=== PATIENT | male | born 1975 | race Hispanic/Latino ===

== ENCOUNTER 2023-07-13 17:14 | Emergency (ER) | payer BC ==
[~2023-07-13] VITALS: Ht 170.2 cm; Wt 63.5 kg
[2023-07-13] MEDS ORDERED: EPINEPHRINE 1MG/10ML(1:10,000) 0.1 MG/ML SYG ONE (17:29)
[2023-07-13] MEDS ORDERED: EPINEPHRINE PF 1MG (1:1,000) 1 MG/ML AMP ONE (17:31)
[2023-07-13] MEDS ORDERED: DiphenhydrAMINE HCL 50 MG/ML VIAL ONE (17:33)
[2023-07-13] MEDS ORDERED: FAMOTIDINE 20MG VIAL IV ONE ×2 (17:33→18:00)
[2023-07-13] MEDS ORDERED: SOLU-MEDROL 125MG VIAL ONE (17:33)
[2023-07-13 17:54] LABS: MEAN CORPUSCULAR HEMOGLOBIN 30.2 pg (27.0-33.0); MEAN CORPUSCULAR HGB CONC 36.1 g/dL (32.0-36.0); MEAN CORPUSCULAR VOLUME 83.7 fL (79-99); PLATELET COUNT (AUTO) 159 K/uL (130-400); RED BLOOD CELL COUNT(AUTO) 5.26 MIL/uL (4.50-6.20); RED CELL DISTRIBUTION WIDTH 11.9 % (11.0-15.5); WHITE BLOOD COUNT (AUTO) 7.6 K/uL (4.8-10.8)
[2023-07-13] MEDS ORDERED: SOLU-MEDROL 125MG VIAL IVP ONE (18:00)
[2023-07-13] MEDS ORDERED: DiphenhydrAMINE HCL 50 MG/ML VIAL IVP ONE (18:00)
[2023-07-13] MEDS ORDERED: EPINEPHRINE PF 1MG (1:1,000) 1 MG/ML AMP IM ONE ×2 (18:00→19:30)
[2023-07-13 18:07] LABS: CREATININE 1.1 mg/dL (0.5-1.5); POTASSIUM 3.6 mmol/L (3.5-5.1)
[2023-07-13] MEDS ORDERED: LACTATED RINGERS 1000ML IV ONE (18:30)
[2023-07-13] MEDS ORDERED: INSULIN HUMULIN R 100 UNIT/ML 3ML IV ONE (18:30)
[2023-07-13] MEDS ORDERED: PRED20TA3 PO (21:26)
[2023-07-13] MEDS ORDERED: DIPH50 PO (21:26)
[2023-07-13] MEDS ORDERED: EPIN0.3P2 IM (21:26)
[2023-07-13] MEDS ORDERED: FAMO-136 PO (21:27)
[2023-07-13 22:44] VITALS: BP 142/82; PULSE 99; RESP 16; O2SAT 100
== END 2023-07-13 22:46 | disposition home or self-care (01) ==
LOC: EDH 17:14
DX: T63.441A Toxic effect of venom of bees, accidental (unintentional), initial encounter (principal); T78.3XXA Angioneurotic edema, initial encounter; E11.65 Type 2 diabetes mellitus with hyperglycemia; Y92.89 Other specified places as the place of occurrence of the external cause
CPT/HCPCS: 99284; 96374; 96375; 80048; 85027; 36415; 93005; 96372 ×2; J1815; J1200; J3490; J2930; J0171 ×2

== ENCOUNTER 2023-12-25 12:05 | Emergency (ER) | payer BC, OTHER ==
[~2023-12-25] VITALS: Ht 170.2 cm; Wt 70.3 kg
[~2023-12-25 12:05] MED LIST: DIPH50 PO; EPIN0.3P2 IM; FAMO-136 PO; PRED20TA3 PO
[2023-12-25] MEDS ORDERED: DEXAMETHASONE SOD PHOSPHATE 4 MG/ML 1ML VIAL IVP ONE (12:30)
[2023-12-25] MEDS ORDERED: 0.9%NACL 1000ML 1,000 ML IV ONE (12:30)
[2023-12-25 14:01] VITALS: BP 123/77; PULSE 92; RESP 17; O2SAT 99
[2023-12-25] MEDS ORDERED: FAMO-136 PO (14:03)
[2023-12-25] MEDS ORDERED: DIPH-1242 PO (14:03)
[2023-12-25] MEDS: SOLU-MEDROL 125MG VIAL IVP ONE (14:04)
[2023-12-25] MEDS: FAMOTIDINE 20MG VIAL IV ONE (14:07)
[2023-12-25] MEDS: DiphenhydrAMINE HCL 50 MG/ML VIAL IV ONE (14:07)
[2023-12-25] MEDS: 0.9%NACL 1000ML 1,000 ML IV ONE (14:07)
== END 2023-12-25 14:15 | disposition home or self-care (01) ==
LOC: EDH 12:05
DX: T63.441A Toxic effect of venom of bees, accidental (unintentional), initial encounter (principal); T78.49XA Other allergy, initial encounter; E11.9 Type 2 diabetes mellitus without complications; Z79.899 Other long term (current) drug therapy; Y92.89 Other specified places as the place of occurrence of the external cause
CPT/HCPCS: 99284; 96374; 96375; 96361; J1200; J3490; J7030; J2919

== ENCOUNTER 2024-02-29 16:29 | Emergency (ER) | payer OTHER ==
[~2024-02-29] VITALS: Ht 170.2 cm; Wt 70.3 kg
[~2024-02-29 16:29] MED LIST changes: +DIPH-1242 PO
[2024-02-29 18:12] LABS: APPEARANCE,URINE CLEAR (CLEAR); BILIRUBIN,URINE NEGATIVE (NEGATIVE); COLOR,URINE LIGHT-YELLOW (YELLOW); GLUCOSE, URINE (UA) >=1000 mg/dL (NEGATIVE); KETONES,URINE 20 mg/dL (NEGATIVE); LEUKOCYTE ESTERASE ,URINE NEGATIVE Leu/uL (NEGATIVE); NITRATE,URINE NEGATIVE (NEGATIVE); OCCULT BLOOD,URINE NEGATIVE (NEGATIVE); PH,URINE 5.5 (5.0-8.0); PROTEIN,URINE 30 mg/dL (NEGATIVE); UROBILINOGEN,URINE 0.2 mg/dL (0.2-1.0)
[2024-02-29 18:14] LABS: ADD UA MICROSCOPIC YES
[2024-02-29 18:15] LABS: SARS-CoV-2, RNA, NAAT NEGATIVE SARS CoV-2 (NEGATIVE)
[2024-02-29 18:17] LABS: MUCUS,URINE RARE LPF (None Seen)
[2024-02-29 18:20] LABS: INFLUENZA TYPE A Negative For Type A (NEGATIVE); INFLUENZA TYPE B Negative For Type B (NEGATIVE)
[2024-02-29 18:21] LABS: BASOPHILS # (AUTO) 0.02 K/uL (0.00-0.20); BASOPHILS % (AUTO) 0.2 % (0.0-5.0); EOSINOPHILS # (AUTO) 0.03 K/uL (0.00-0.70); EOSINOPHILS % (AUTO) 0.3 % (0.0-8.0); HEMATOCRIT 47.1 % (42-54); IMMATURE GRANULOCYTE ABSOLUTE 0.04 K/uL (0-1); LYMPHOCYTES # (AUTO) 1.2 K/uL (1.0-4.8); LYMPHOCYTES % (AUTO) 11.9 % (21.0-51.0); MEAN CORPUSCULAR HEMOGLOBIN 29.8 pg (27.0-33.0); MEAN CORPUSCULAR HGB CONC 35.2 g/dL (32.0-36.0); MEAN CORPUSCULAR VOLUME 84.6 fL (79-99); MONOCYTES # (AUTO) 0.5 K/uL (0.1-1.0); MONOCYTES % (AUTO) 4.5 % (3.0-13.0); NEUTROPHILS # (AUTO) 8.5 K/uL (1.8-7.7); NEUTROPHILS % (AUTO) 82.7 % (40.0-77.0); PLATELET COUNT (AUTO) 174 K/uL (130-400); RED BLOOD CELL COUNT(AUTO) 5.57 MIL/uL (4.50-6.20); RED CELL DISTRIBUTION WIDTH 11.7 % (11.0-15.5); WHITE BLOOD COUNT (AUTO) 10.2 K/uL (4.8-10.8)
[2024-02-29] MEDS: FAMOTIDINE 20MG VIAL IV ONE (18:31)
[2024-02-29] MEDS: ondanSETRON 4MG INJ IVP ONE (18:31)
[2024-02-29 18:32] LABS: CREATININE 0.9 mg/dL (0.5-1.3); POTASSIUM 4.2 mmol/L (3.5-5.1)
[2024-02-29] MEDS: morPHINE 2 MG SYG IVP ONE (18:32)
[2024-02-29 18:37] LABS: ALBUMIN 3.7 g/dL (3.5-5.0); BILIRUBIN,TOTAL 0.8 mg/dL (0.2-1.0); TOTAL PROTEIN, SERUM 7.1 g/dL (6.0-8.3)
[2024-02-29] MEDS: 0.9%NACL 1000ML 1,000 ML IV ONE (20:20)
[2024-02-29 20:23] VITALS: BP 143/86; PULSE 78; RESP 18; TEMP 98.4; O2SAT 100
[2024-02-29] MEDS ORDERED: ONDA-243 PO (20:35)
[2024-02-29] MEDS: INSULIN humuLIN R 100 UNIT/ML 3ML IV ONE (20:48)
== END 2024-02-29 21:07 | disposition home or self-care (01) ==
LOC: EDH 16:29
DX: K52.9 Noninfective gastroenteritis and colitis, unspecified (principal); E11.65 Type 2 diabetes mellitus with hyperglycemia; Z79.899 Other long term (current) drug therapy; Z90.49 Acquired absence of other specified parts of digestive tract; Z98.890 Other specified postprocedural states; Z20.822 Contact with and (suspected) exposure to COVID-19
CPT/HCPCS: 99285; 70450; 96374; 96375; 87635; 80053; 83690; 85025; 87804 ×2; 82948; 81001; 36415; 74176; J3490; J2270; J7030; J2405

== ENCOUNTER 2024-03-01 08:22 | Emergency (ER) | payer OTHER ==
[~2024-03-01] VITALS: Ht 170.2 cm; Wt 70.3 kg
[~2024-03-01 08:22] MED LIST changes: +ONDA-243 PO
[2024-03-01 09:09] LABS: BASOPHILS # (AUTO) 0.04 K/uL (0.00-0.20); BASOPHILS % (AUTO) 0.5 % (0.0-5.0); EOSINOPHILS # (AUTO) 0.09 K/uL (0.00-0.70); EOSINOPHILS % (AUTO) 1.1 % (0.0-8.0); HEMATOCRIT 45.6 % (42-54); IMMATURE GRANULOCYTE ABSOLUTE 0.01 K/uL (0-1); LYMPHOCYTES # (AUTO) 2.1 K/uL (1.0-4.8); LYMPHOCYTES % (AUTO) 25.7 % (21.0-51.0); MEAN CORPUSCULAR HGB CONC 35.5 g/dL (32.0-36.0); MEAN CORPUSCULAR VOLUME 84.4 fL (79-99); MONOCYTES # (AUTO) 0.6 K/uL (0.1-1.0); MONOCYTES % (AUTO) 6.8 % (3.0-13.0); NEUTROPHILS # (AUTO) 5.3 K/uL (1.8-7.7); NEUTROPHILS % (AUTO) 65.8 % (40.0-77.0); PLATELET COUNT (AUTO) 176 K/uL (130-400); RED CELL DISTRIBUTION WIDTH 11.9 % (11.0-15.5); WHITE BLOOD COUNT (AUTO) 8.1 K/uL (4.8-10.8)
[2024-03-01 09:20] LABS: CREATININE 0.9 mg/dL (0.5-1.3); POTASSIUM 3.4 mmol/L (3.5-5.1)
[2024-03-01 09:24] LABS: ALBUMIN 3.6 g/dL (3.5-5.0); BILIRUBIN,TOTAL 0.9 mg/dL (0.2-1.0)
[2024-03-01 09:27] LABS: APPEARANCE,URINE CLEAR (CLEAR); BILIRUBIN,URINE NEGATIVE (NEGATIVE); COLOR,URINE LIGHT-YELLOW (YELLOW); GLUCOSE, URINE (UA) >=1000 mg/dL (NEGATIVE); KETONES,URINE 10 mg/dL (NEGATIVE); LEUKOCYTE ESTERASE ,URINE NEGATIVE Leu/uL (NEGATIVE); NITRATE,URINE NEGATIVE (NEGATIVE); OCCULT BLOOD,URINE NEGATIVE (NEGATIVE); PH,URINE 6.5 (5.0-8.0); PROTEIN,URINE NEGATIVE (NEGATIVE); UROBILINOGEN,URINE 0.2 mg/dL (0.2-1.0)
[2024-03-01 09:28] LABS: ADD UA MICROSCOPIC YES
[2024-03-01 09:29] LABS: WBC,URINE 0-1 /HPF (0-1)
[2024-03-01] MEDS: ketOROlac 15MG/ML VIAL (15MG/ML) IV ONE (09:55)
[2024-03-01] MEDS: ondanSETRON 4MG INJ IVP ONE (09:55)
[2024-03-01] MEDS: FAMOTIDINE 20MG VIAL IV ONE (09:55)
[2024-03-01] MEDS: 0.9%NACL 1000ML 1,000 ML IV ONE (09:56)
[2024-03-01 15:17] VITALS: BP 144/80; PULSE 77; RESP 14; TEMP 97.5; O2SAT 99
== END 2024-03-01 15:18 | disposition home or self-care (01) ==
LOC: EDH 08:22
DX: G43.901 Migraine, unspecified, not intractable, with status migrainosus (principal); E11.65 Type 2 diabetes mellitus with hyperglycemia; Z79.899 Other long term (current) drug therapy; Z90.49 Acquired absence of other specified parts of digestive tract
CPT/HCPCS: 99284; 96374; 96375; 96361; 80053; 83690; 85025; 81001; 36415; J3490; J7030; J2405; J1885